=== PATIENT | male | born 1980 | race Caucasian/White ===

== ENCOUNTER 2017-02-02 15:24 | Observation (INO) ==
--- NOTE | 2017-02-02 15:55 | Emergency Department Note ---
Disposition Clinical Impression: Perirectal abscess Disposition: Admitted As Inpatient Condition: Good Referrals: NONE,PCP [Primary Care Provider] - Forms: ED Satisfaction Letter Time of Disposition: 17:55 Skin/Abscess/FB HPI Chief complaint: ED Skin/Abscess/Foreign Body Stated complaint: Perianal abscess Time Seen by Provider: 02/02/17 15:49 Source: patient Mode of arrival: ambulatory Limitations: no limitations Nursing Notes Reviewed: Yes Vital Signs Reviewed: Yes HPI Narrative: The patient complains of a perirectal pain was seen at urgent care started on antibiotics for abscess. Pt Subjective Complaint: abscess/boil (Very rectal) Onset (ago): day(s) Location: buttocks Severity: moderate Quality: aching Consistency: constant Improves with: none Worsens with: palpation Associated symptoms: Denies: fever, chills, rigors Treatments prior to arrival: antibiotic Home Medications Medication Instructions Recorded Confirmed Bactrim 02/02/17 Hydrocodon-Acetamin 7.5-325/15 02/02/17 02/02/17 Allergies Allergy/AdvReac Type Severity Reaction Status Date / Time azithromycin [From Zithromax] Allergy Rash Verified 02/02/17 14:40 Constitutional: Denies: fever, chills, weakness, weight change Eyes: Denies: eye pain, eye discharge, vision change ENT ED: Denies: ear pain, throat pain, dental pain, hearing loss, epistaxis, congestion, dysphagia Cardiovascular: Denies: chest pain, palpitations, dyspnea on exertion, edema, syncope Respiratory: Denies: cough, dyspnea, wheezes, hemoptysis, stridor Gastrointestinal: Denies: abdominal pain, nausea, vomiting, diarrhea, constipation, hematemesis, melena, hematochezia Genitourinary: Reports: other (Perirectal pain). Denies: urgency, dysuria, frequency, hematuria Musculoskeletal: Denies: back pain, neck pain, arthralgia, myalgia Integumentary: Denies: rash, abrasion, lesions Neurological: Denies: headache, weakness, numbness, paresthesias, confusion, abnormal gait, vertigo Psychiatric: Denies: anxiety, depression, suicidal thoughts, homicidal thoughts , auditory hallucinations, visual hallucinations Endocrine: Denies: fatigue Hematological/Lymphatic: Denies: easy bleeding, easy bruising Allergic/Immunologic: Denies: facial swelling, urticaria Past Medical History - Past Medical History Medical history: Reports: no medical history Psychiatric history: Reports: no psych history - Social History Smoking Status: Never smoker Smokeless Tobacco Status: No Alcohol use: Reports: rarely Drug use: Reports: none Physical Exam - General Limitations: no limitations General appearance: alert - Head Head exam: atraumatic, normocephalic, normal inspection - Eye Eye exam: Present: normal appearance, PERRL, EOMI - ENT ENT exam: normal exam, normal oropharynx, mucous membranes moist - Neck Neck exam: Present: normal inspection, full ROM, trachea midline - Chest Chest inspection: Present: normal inspection, symmetric chest wall rise - Respiratory Respiratory exam: Present: normal lung sounds bilaterally - Cardiovascular Cardiovascular exam: Present: regular rate, normal rhythm, normal heart sounds - Abdominal Exam Abdominal exam: Present: soft, Non-Tender. Absent: tenderness, distention, guarding, rebound, rigidity - Rectal Exam Rectal exam: Present: tenderness (To the right of the anus.) - Extremities Exam Extremities exam: Present: normal inspection, full ROM. Absent: tenderness, pedal edema - Expanded Lower Extremity Exam Neurovascular/Tendon exam: Absent: motor deficit, sensory deficit, tendon deficit Gait: observed and normal - Back Exam Back exam: Present: normal inspection, full ROM. Absent: tenderness - Neurological Exam Neurological exam: Present: alert, oriented X3 - Psychiatric Psychiatric exam: Present: normal affect, normal mood - Skin Skin exam: Present: warm, dry, intact, normal color Course - Reevaluation(s) Reevaluation #1: Patient evaluated by surgery will take the patient to the OR. Time: 17:55 - Consultations Consultation #1: Consult with Dr. Morgan who will take the patient to the OR Time: 17:54 Vital Signs Temperature 98.6 F 02/02/17 15:34 Pulse Rate 94 02/02/17 15:34 Respiratory Rate 14 02/02/17 15:34 Blood Pressure 140/93 02/02/17 15:34 O2 Sat by Pulse Oximetry 98 02/02/17 15:34 Temperature 98.6 F 02/02/17 15:34 Pulse Rate 87 02/02/17 17:43 Respiratory Rate 16 02/02/17 17:43 Blood Pressure 128/77 02/02/17 17:43 O2 Sat by Pulse Oximetry 100 02/02/17 17:43 Oxygen Delivery Oxygen Delivery Room Air Skin/Abscess/Foreign Body - Lab Data Result diagrams: 02/02/17 16:10 02/02/17 16:10 Lab Results 02/02/17 02/02/17 Range/Units 16:10 16:10 WBC 9.1 (4.3-11.1) K/mcL RBC 4.82 (4.19-5.50) M/mcL Hgb 13.9 (12.9-16.9) g/dL Hct 40.5 (37.5-50.1) % MCV 84.0 (83.0-100.0) fL MCH 28.8 (28.0-33.3) pg MCHC 34.3 (31.6-35.5) g/dL RDW 11.8 (11.5-14.5) % Plt Count 208 (140-400) K/mcL MPV 8.2 L (9.4-12.4) fL Immature Gran % 0.2 (0-4) % Seg Neutrophils % 73.1 % Lymphocytes % 16.3 % Monocytes % 9.7 % Eosinophils % 0.4 % Basophils % 0.3 % Neutrophils # 6.6 (1.6-8.9) K/mcL Lymphocytes # 1.5 (0.6-4.6) K/mcL Monocytes # 0.9 (0.0-1.3) K/mcL Eosinophils # 0.0 (0.0-0.6) K/mcL Basophils # 0.0 (0.0-0.2) K/mcL Sodium 138 (136-145) mEq/L Potassium 3.8 (3.5-4.5) mEq/L Chloride 105 (98-109) mEq/L Carbon Dioxide 24 (19-29) mEq/L BUN 14 (8-26) mg/dL Creatinine 1.11 (0.72-1.25) mg/dL Est GFR ( Amer) > 60 (> 60) Est GFR (Non-Af Amer) > 60 (> 60) BUN/Creatinine Ratio 13 (6-26) Glucose 90 (70-99) mg/dL Calculated Osmolality 286 (280-300) Calcium 9.0 (8.6-10.8) mg/dL
[2017-02-02 16:24] LABS: Basophils % 0.3 %; Eosinophils % 0.4 %; Hematocrit 40.5 % (37.5-50.1); Hemoglobin 13.9 g/dL (12.9-16.9); Immature Granulocytes % 0.2 % (0-4); Lymphocytes # 1.5 K/mcL (0.6-4.6); Lymphocytes % 16.3 %; Mean Corpuscular HGB Conc 34.3 g/dL (31.6-35.5); Mean Corpuscular Hemoglobin 28.8 pg (28.0-33.3); Mean Platelet Volume 8.2 fL (9.4-12.4); Monocytes # 0.9 K/mcL (0.0-1.3); Monocytes % 9.7 %; Neutrophils # 6.6 K/mcL (1.6-8.9); Platelet Count 208 K/mcL (140-400); Red Blood Count 4.82 M/mcL (4.19-5.50); Red Cell Distribution Width 11.8 % (11.5-14.5); Segmented Neutrophils % 73.1 %
[2017-02-02 16:29] LABS: BUN/Creatinine Ratio 13 (6-26); Blood Urea Nitrogen 14 mg/dL (8-26); Carbon Dioxide 24 mEq/L (19-29); Chloride 105 mEq/L (98-109); Glucose 90 mg/dL (70-99); Osmolality,Calculated 286 (280-300); Potassium 3.8 mEq/L (3.5-4.5); Sodium 138 mEq/L (136-145); eGFR For African Americans > 60 (> 60); eGFR For Non-African Americans > 60 (> 60)
--- NOTE | 2017-02-02 18:02 | General Surg History&Physical ---
Date of Encounter: 02/02/17 Time of Encounter: 18:00 Assessment and Plan (1) Perirectal abscess Current Visit: Yes Status: Acute 36M otherwise healthy who presents with perirectal abscess; non septic - NPO -IVF - CT scan to verify size of abscess - OR tonight for i&d; discussed risks, benefits, and alternatives with patient The assessment and plan as outlined above was discussed with the patient and/or family members who expressed understanding and agreement. All questions were answered. History of Present Illness Chief complaint: perirectal pain HPI: Mr. Sifuentes is a 37 year old male prior history of sinus surgeries who presents with 4 days of perirectal pain. He was seen at an urgent care center and given PO antibiotics. However, his symtpoms and pain has not resolved. No reports of fevers, chills, nausea, vomiting. No reports of rectal drainage/purulent drainage. He presents to [facility] ED for further evaluation; Past Med Surg Social Fam HX - Past Medical History Medical history: no medical history Psychiatric history: no psych history - Past Surgical History Surgical History: other (sinus surgery, removal of back lipoma) - Social History Smoking Status: Never smoker Smokeless Tobacco Status: No Alcohol use: rarely Drug use: none Medications and Allergies Bactrim 02/02/17 [History] Hydrocodon-Acetamin 7.5-325/15 02/02/17 [History] 3 Allergy/AdvReac Type Severity Reaction Status Date / Time azithromycin [From Zithromax] Allergy Rash Verified 02/02/17 14:40 Review of Systems All systems PM: A 10-system review of systems was performed and is negative for pertinent findings except as documented above in the HPI. General Surgery Exam Initial Vital Signs Temp Pulse Resp BP Pulse Ox 98.6 F 94 14 140/93 98 02/02/17 15:34 02/02/17 15:34 02/02/17 15:34 02/02/17 15:34 02/02/17 15:34 - General physical appearance well developed, well nourished, no distress - Eyes normal ocular movement - ENT CN 2-12 grossly intact - Neck no lymphadectomy - Respiratory normal expansion, normal respiratory effort - Cardiovascular Cardiovascular exam: Present: RRR - Abdomen Abdomen general surgery: Present: soft, non tender - Rectum Rectum: Present: normal sphincter tone, no hemorrhoids, other (significant tendernes; no drainage; (+)fluctuance; ) - Integumentary Integumentary general surgery: Present: warm and dry - Neurologic Present: CN 2-12 grossly intact - Musculoskeletal Present: other (FROM in UE/LE b/l) - Psychiatric Psychiatric general surgery: Present: A&Ox3 Results - Labs 02/02/17 16:10 02/02/17 16:10 Abnormal lab results MPV 8.2 fL (9.4-12.4) L 02/02/17 16:10 Diabetes panel 02/02/17 Range/Units 16:10 Sodium 138 (136-145) mEq/L Potassium 3.8 (3.5-4.5) mEq/L Chloride 105 (98-109) mEq/L Carbon Dioxide 24 (19-29) mEq/L BUN 14 (8-26) mg/dL Creatinine 1.11 (0.72-1.25) mg/dL Glucose 90 (70-99) mg/dL Calcium 9.0 (8.6-10.8) mg/dL Calcium panel 02/02/17 Range/Units 16:10 Calcium 9.0 (8.6-10.8) mg/dL Pituitary panel 02/02/17 Range/Units 16:10 Sodium 138 (136-145) mEq/L Potassium 3.8 (3.5-4.5) mEq/L Chloride 105 (98-109) mEq/L Carbon Dioxide 24 (19-29) mEq/L BUN 14 (8-26) mg/dL Creatinine 1.11 (0.72-1.25) mg/dL Glucose 90 (70-99) mg/dL Calcium 9.0 (8.6-10.8) mg/dL Adrenal panel 02/02/17 Range/Units 16:10 Sodium 138 (136-145) mEq/L Potassium 3.8 (3.5-4.5) mEq/L Chloride 105 (98-109) mEq/L Carbon Dioxide 24 (19-29) mEq/L BUN 14 (8-26) mg/dL Creatinine 1.11 (0.72-1.25) mg/dL Glucose 90 (70-99) mg/dL Calcium 9.0 (8.6-10.8) mg/dL All other labs normal.
[2017-02-02] MEDS ORDERED: Ondansetron ODT 4 MG TAB.RAPDIS SL PRN (18:04)
[2017-02-02] MEDS ORDERED: 0.9 % Sodium Chloride 1,000 ML IVC ONE (18:04)
--- NOTE | 2017-02-02 20:54 | Anesthesia Evaluation PreOp ---
Date of Encounter: 02/02/17 Time of Encounter: 20:53 - Past History Planned Operation: I&D perirectal abcess Cardiac History: Denies any Significant Hx Pulmonary History: Denies Any Significant HX AD TAKER History: Denies Any Significant HX Other Medical History: Denies Any Significant HX Anesthesia History: No Prior Anesthetic Complications, Past Anesthesia (sinus surgery, removal of back lipoma) Alcohol Use: rarely Drug use: none Medications and Allergies Bactrim 02/02/17 [History] Hydrocodon-Acetamin 7.5-325/15 02/02/17 [History] 3 Allergy/AdvReac Type Severity Reaction Status Date / Time azithromycin [From Zithromax] Allergy Rash Verified 02/02/17 14:40 - Meds/Allergy Pre-op Review Medications Reviewed: Yes Allergies Reviewed: Yes Beta Blockers on Current Med List: No Anesthesia Results - Labs 02/02/17 16:10 02/02/17 16:10 Anesthesia Exam O2 Sat Height 1.83 m Height 1.83 m Weight 96.6 kg Weight 96.615 kg O2 Sat by Pulse Oximetry 99 O2 Sat by Pulse Oximetry 100 O2 Sat by Pulse Oximetry 98 Vital Signs Temp Pulse Resp BP Pulse Ox 98.6 F 94 14 140/93 98 02/02/17 15:34 02/02/17 15:34 02/02/17 15:34 02/02/17 15:34 02/02/17 15:34 Height: 6' Weight: 212# NPO (# of Hours): > 8 hrs Pain Scale: 0 Pain Scale Used: Numeric (1 - 10)
[2017-02-02] MEDS ORDERED: *HR* Midazolam HCl 5 MG/5 ML VIAL IVP ONE (21:10)
[2017-02-02] MEDS ORDERED: *HR* FentaNYL (PF) 100 MCG/2 ML VIAL ONE (21:10)
[2017-02-02] MEDS ORDERED: Propofol 500 MG/50 ML INFUS..BTL ONE (21:10)
[2017-02-02] MEDS ORDERED: MetroNIDAZOLE 500 MG/100 ML 500 MG/100 ML BAG IVPB ONE ×2 (21:18→21:25)
[2017-02-02] MEDS ORDERED: Ondansetron 4 MG/2 ML VIAL ONE (21:54)
[2017-02-02] MEDS ORDERED: Dexamethasone 4 MG/ML VIAL ONE (21:54)
--- NOTE | 2017-02-02 22:18 | Operative Note ---
Date of procedure: 02/02/17 Pre-op diagnosis: perirectal abscess Post-op diagnosis: same Procedure: exam under anesthesia, incision and drainage of perirectal abscess Implants: iodoform guaze Complications: none Anesthesia: GETA Local Anesthetics: 0.5% Sensorcaine HCL SubQ (cc) Surgeon: Liang Morgan Estimated blood loss (cc): 5 Specimen: abscess contents Condition: stable Procedure in Detail: Patient was brought into the operating room suite. Mechanical DVT was applied. He was placed in the supine position and underwent smooth induction of IV sedation. preoperative antibiotics were given. A time out was held identifying correct patient, pathology, procedure,and physician. I began by injecting 20cc of local anesthetic. I used the fifteen blade to incise into the abscess located at the anterior aspect of perianal region. Immediate expulsion of purulent drainage. Aerobic and Anaerobic cultures were obtained. I extended the incision to about 1.5 cm. The cavity was about 1cm in depth. I used the hemostat to ensure all loculations were broken up. I packed his wound with iodoform dressing and concluded the procedure. I dressed the wound with 4x4 guaze, ABD pad, mesh underwear The patient tolerated the procedure and was escorted to the recovery area in stable condition
--- NOTE | 2017-02-02 22:30 | Discharge Summary ---
Date of Encounter: 02/02/17 Time of Encounter: 22:26 - Discharge Diagnosis (1) Perirectal abscess Priority: Primary Status: Acute Comments: s/p I&D without complication - Discharge Medications Home Medications: Bactrim 02/02/17 [History] Hydrocodon-Acetamin 7.5-325/15 02/02/17 [History] Allergies/Adverse Reactions: 3 Allergy/AdvReac Type Severity Reaction Status Date / Time azithromycin [From Zithromax] Allergy Rash Verified 02/02/17 14:40 General Surgery Exam Initial Vital Signs Temp Pulse Resp BP Pulse Ox 98.6 F 94 14 140/93 98 02/02/17 15:34 02/02/17 15:34 02/02/17 15:34 02/02/17 15:34 02/02/17 15:34 - General physical appearance well developed, well nourished, no distress - Eyes normal ocular movement - ENT CN 2-12 grossly intact - Neck no lymphadectomy - Respiratory normal expansion, normal respiratory effort - Cardiovascular Cardiovascular exam: Present: RRR - Abdomen Abdomen general surgery: Present: soft, non tender - Genitourinary Present: normal penis with no external lesions - Rectum Rectum: Present: normal sphincter tone, no hemorrhoids - Integumentary Integumentary general surgery: Present: warm and dry - Neurologic Present: CN 2-12 grossly intact - Psychiatric Psychiatric general surgery: Present: A&Ox3 Date of admission: 02/02/17 18:59 Primary care physician: PCP NONE Discharging clinician: Liang Morgan Anticipated date of discharge: 02/02/17 - Patient Status Disposition: Home, Self-Care Condition: Good Functional capacity at discharge: independent ambulation Overall status at discharge: patient is back to baseline - Discharge Instructions Follow Up With: NONE,PCP [Primary Care Provider] - Additional Instructions: Sitz bath twice a day x 5 days; allow water and soap to get in the wound and clean thoroughly. Pack dressing after sitz bath and apply guaze to protect your clothing from the drainage. Cont with antibiotics prescribed to you. In addition continue your current narcotic prescribed to you. You should find relief now that you are drained. Please return to the ED or call the office if you experience worsening pain, fevers, chills, significant redness, or any other symptoms you feel warrante evaluation Follow up in 1-2 weeks - Diet and Activity Activity: increase activity as tolerated Diet: advance to your usual diet - Hospital Course Hospital course: Mr. Sifuentes is a 37 year old male evaluated in the emergency with a perirectal abscess. He was taken to the operating room suite where he underwent an incision and drainage. The patient tolerated the procedure and, after recovery he was discharged home after he met discharge criteria. - Time Spent with Patient Total time spent providing and/or coordinating discharge services: Greater than 30 minutes
[2017-02-02] MEDS ORDERED: *HR* OxyCODONE/APAP 7.5/325 TABLET PO PRN (23:25)
--- NOTE | 2017-02-02 23:27 | Discharge Summary ---
Date of Encounter: 02/02/17 Time of Encounter: 23:25 - Discharge Diagnosis (1) Perirectal abscess Priority: Primary Status: Acute - Discharge Medications Prescriptions: OxyCODONE/APAP 7.5/325 [Percocet 7.5/325 MG] 1 each PO Q6HR PRN 5 Days #20 tablet PRN Reason: Pain Home Medications: Bactrim 02/02/17 [History] Hydrocodon-Acetamin 7.5-325/15 02/02/17 [History] OxyCODONE/APAP 7.5/325 [Percocet 7.5/325 MG] 1 each PO Q6HR PRN 5 Days #20 tablet 02/02/17 [Rx] Allergies/Adverse Reactions: 3 Allergy/AdvReac Type Severity Reaction Status Date / Time azithromycin [From Zithromax] Allergy Rash Verified 02/02/17 14:40 General Surgery Exam Initial Vital Signs Temp Pulse Resp BP Pulse Ox 98.6 F 94 14 140/93 98 02/02/17 15:34 02/02/17 15:34 02/02/17 15:34 02/02/17 15:34 02/02/17 15:34 Date of admission: 02/02/17 18:59 Primary care physician: PCP NONE - Patient Status Disposition: Home, Self-Care Condition: Good - Discharge Instructions Follow Up With: NONE,PCP [Primary Care Provider] - Additional Instructions: Sitz bath twice a day x 5 days; allow water and soap to get in the wound and clean thoroughly. Pack dressing after sitz bath and apply guaze to protect your clothing from the drainage. Cont with antibiotics prescribed to you. In addition continue your current narcotic prescribed to you. You should find relief now that you are drained. Please return to the ED or call the office if you experience worsening pain, fevers, chills, significant redness, or any other symptoms you feel warrante evaluation Follow up in 1-2 weeks - Hospital Course Hospital course: Mr. Sifuentes is a 37 year old male - Time Spent with Patient Total time spent providing and/or coordinating discharge services:
[2017-02-03] MEDS ORDERED: Piperacillin/Tazobactam 3.375 GM in 0.9 % Sodium Chloride Mini Bag 100 ML IVPB SCH
[2017-02-03 01:39] VITALS: BP 112/67
--- NOTE | 2017-02-03 19:04 | Anesthesia Evaluation Post Op ---
Date of Encounter: 02/02/17 Time of Encounter: 22:20 - Vital Signs Vital Signs: Vital Signs/O2 Sat, Most Current Temp Pulse Resp BP Pulse Ox 98.0 F 73 14 112/67 99 02/02/17 23:55 02/02/17 23:55 02/02/17 23:55 02/02/17 23:55 02/02/17 23:55 - Lungs Lungs: Clear Ascult./Percussion - Airway Airway: Non-obstructed - Cardiovascular Regular Rate - Mental Status Mental Status: Alert & Oriented, Answers Appropriately - Pain Pain Scale: 0 Pain Scale used: Numeric (1 - 10) - Nausea Vomiting Nausea Vomiting: Not Present - Hydration Hydration: NPO, Has not voided - Discharge PostOp Status: Transfer Patient to floor
== END 2017-02-03 04:16 | disposition home or self-care (01) ==
LOC: EMEROO 15:24 → 3ANU 15:24
PROVIDERS: ADMIT Surgery; ATTEND Surgery